=== PATIENT | female | born 1980 | race African-American/Black ===

== ENCOUNTER 2021-12-29 12:45 | Outpatient (CLI) | payer BC | END 2021-12-29 12:46 | disposition home or self-care (01) | LOC: BICMAMMO 12:45 | PROVIDERS: ATTEND Family Medicine | DX: Z12.31 Encounter for screening mammogram for malignant neoplasm of breast (principal) | CPT/HCPCS: 77063; 77067 ==

== ENCOUNTER 2022-01-17 09:19 | Outpatient (CLI) | payer BC | END 2022-01-17 09:20 | disposition home or self-care (01) | LOC: BICMAMMO 09:19 | PROVIDERS: ATTEND Family Medicine | DX: R92.2 Inconclusive mammogram (principal) | CPT/HCPCS: G0279 ==